=== PATIENT | male | born 1950 | race Caucasian/White ===

== ENCOUNTER 2017-10-05 13:08 | Emergency (ER) | payer MEDICARE, BC ==
[2017-10-05 13:31] VITALS: RESP 20; TEMP 98.7
--- NOTE | 2017-10-05 14:11 | ED ---
Extremity Problem HPI - General Chief complaint: Extremity Problem,Nontraumatic Stated complaint: poss DVT Time Seen by Provider: 10/05/17 13:32 Source: patient, RN notes reviewed Mode of arrival: wheelchair Limitations: no limitations - History of Present Illness Initial comments: This a 67-year-old male presents emergency Department with chief complaint of right leg pain. Patient states that he has a history of DVT. Patient concerned that he's had more pain when he presses on his calf than usual and is concerned that he may have recurrent DVT. He denies chest pain or shortness of breath. He has mild swelling to the right leg but states he normally has some swelling bilaterally. He does have severe psoriasis states this is normal for him. Patient denies any increased redness or warmth to his leg. - Related Data Home Medications Medication Instructions Recorded Confirmed Multivitamin [Men's Multi-Vitamin] 1 tab PO DAILY 02/15/14 07/18/15 [place]-3 Fatty Acids/Fish Oil [Fish 1,000 mg PO DAILY 02/15/14 07/18/15 Oil 1,000 mg Softgel] Ranitidine HCl [Zantac] 150 mg PO DAILY PRN 02/15/14 07/18/15 Albuterol Sulfate [Proair Hfa] 1 - 2 puff INHALATION Q6HR PRN 07/16/15 07/18/15 Ascorbic Acid [Vitamin C] 2,000 mg PO DAILY@1200 07/16/15 07/18/15 Betamethasone Dipropionate 1 applic TOPICAL BID 07/16/15 07/18/15 [Diprolene 0.05% Ointment] Calcipotriene 60 ml TP DAILY 07/16/15 07/18/15 Lansoprazole [Prevacid] 30 mg PO DAILY 07/16/15 07/18/15 PARoxetine HCL [Paxil] 60 mg PO HS 07/16/15 07/18/15 Primidone [Mysoline] 50 mg PO DAILY 07/16/15 07/18/15 Valsartan/Hydrochlorothiazide 1 tab PO BID 07/16/15 07/18/15 [Diovan Hct 160-25 mg Tablet] Vitamin E 1,000 unit PO DAILY 07/16/15 07/18/15 busPIRone HCl [Buspar] 10 mg PO TID 07/16/15 07/18/15 diphenhydrAMINE [Benadryl] 25 mg PO HS 07/16/15 07/18/15 Previous Rx's Medication Instructions Recorded Aspirin 325 mg PO DAILY 30 Days tab 02/20/14 Cholecalciferol [Vitamin D3] 1,000 unit PO DAILY@1200 30 Days 02/20/14 tab Gentamicin 0.1% Cream 1 applic TOPICAL DAILY 30 Days 02/20/14 applic Taclonex 1 applic TOPICAL BID #30 02/20/14 Allergies Allergy/AdvReac Type Severity Reaction Status Date / Time Sulfa (Sulfonamide Allergy Unknown Unknown Verified 10/05/17 13:31 Antibiotics) acetaminophen [From Vicodin] Allergy Chest Pain Verified 10/05/17 13:31 cephalexin monohydrate Allergy Anaphylaxis Verified 10/05/17 13:31 [From Keflex] codeine phosphate Allergy Chest Pain Verified 10/05/17 13:31 [From Tylenol-Codeine #3] hydrocodone bitartrate Allergy Chest Pain Verified 10/05/17 13:31 [From Vicodin] levofloxacin [From Levaquin] Allergy Rash/Hives Verified 10/05/17 13:31 Penicillins Allergy Anaphylaxis Verified 10/05/17 13:31 rosuvastatin calcium Allergy Chest Pain Verified 10/05/17 13:31 [From Crestor] Tetracyclines Allergy Anaphylaxis Verified 10/05/17 13:31 atorvastatin calcium AdvReac MUSCLE Verified 10/05/17 13:31 [From Lipitor] PAINS Review of Systems ROS Statement: Those systems with pertinent positive or pertinent negative responses have been documented in the HPI. ROS Other: All systems not noted in ROS Statement are negative. Past Medical History Past Medical History: Asthma, Diabetes Mellitus, Deep Vein Thrombosis (DVT), GERD/Reflux, Hearing Disorder / Deafness, Hyperlipidemia, Hypertension, Skin Disorder Additional Past Medical History / Comment(s): Diabetes controlled by diet, GOOD WHEN WGT DOWN. HX DVT RT GROIN TO ANKLE, WEARS THIGH HIGH TEDS. Hiatal Hernia, LGE/SLIDING. Has Psoriasis ON Body/SCALP. FLATULENCE. TINNITUS. HERNIATED DISCS LOWER BACK, GETS SCIATICA. History of Any Multi-Drug Resistant Organisms: None Reported Past Surgical History: Cholecystectomy, Heart Catheterization, Orthopedic Surgery Additional Past Surgical History / Comment(s): Lt ankle surgery. Left ACL RT KNEE, CADAVER GRAFT. Jaw Surgery. CATH 1993, [place]. Past Anesthesia/Blood Transfusion Reactions: No Reported Reaction Past Psychological History: Anxiety, Depression, PTSD Smoking Status: Former smoker Past Alcohol Use History: None Reported Past Drug Use History: None Reported - Past Family History Father Brother(s) Family Medical History: Cancer General Exam Limitations: no limitations General appearance: alert, in no apparent distress Head exam: Present: atraumatic, normocephalic, normal inspection Neck exam: Present: normal inspection. Absent: tenderness, meningismus, lymphadenopathy Respiratory exam: Present: normal lung sounds bilaterally. Absent: respiratory distress, wheezes, rales, rhonchi, stridor Cardiovascular Exam: Present: regular rate, normal rhythm, normal heart sounds. Absent: systolic murmur, diastolic murmur, rubs, gallop, clicks Extremities exam: Present: other (Right calf mild tenderness with palpation, pedal pulses equal bilaterally 2+, mild erythema with diffuse psoriasis changes. Minimal edema) Course Vital Signs 10/05/17 13:28 Temperature 98.7 F Pulse Rate 101 H Respiratory 20 Rate Blood Pressure 155/76 O2 Sat by Pulse 94 L Oximetry Medical Decision Making - Medical Decision Making 67-year-old male presented for right calf pain concern for DVT. Patient had old chart which showed no evidence of acute DVT. Patient may have pain for superficial thrombophlebitis and which she'll continue compression stockings, warm compresses. Patient will follow-up with PCP for further care return parameters were discussed. There is no evidence of cellulitis at this time. Patient has good arterial pulse. Disposition Clinical Impression: Right calf pain Disposition: HOME SELF-CARE Condition: Stable Instructions: Superficial Thrombophlebitis (ED) Additional Instructions: Please return to the Emergency Department if symptoms worsen or any other concerns. Is patient prescribed a controlled substance at d/c from ED?: No Referrals: Clifton Angeles MD [Primary Care Provider] - 1-2 days
--- NOTE | 2017-10-05 14:59 | US ---
EXAMINATION TYPE: US venous doppler duplex LE RT DATE OF EXAM: 10/05/2017 2:35 PM COMPARISON: NONE CLINICAL HISTORY: 67-year-old male Pain. ACL graft 8 years ago, per pt SIDE PERFORMED: Right TECHNIQUE: The lower extremity deep venous system is examined utilizing real time linear array sonog jennifer with graded compression, doppler sonography and color-flow sonography. FINDINGS: VESSELS IMAGED: External Iliac Vein (EIV) Common Femoral Vein Deep Femoral Vein Greater Saphenous Vein * Femoral Vein Popliteal Vein Small Saphenous Vein * Proximal Calf Veins (* superficial vessels) Independent Living Advisor notes: Suboptimal visualization overall secondary to large patient body habitus. Right Leg: Negative for DVT IMPRESSION: Technical limitations due to large body habitus. To the extent visualized, no evidence for DVT within the right lower extremity imaged from the groin to the upper calf.
[2017-10-05 15:39] VITALS: BP 144/70; PULSE 98
== END 2017-10-05 15:38 | disposition home or self-care (01) ==
LOC: EC 13:08
DX: M79.661 Pain in right lower leg (principal); E78.5 Hyperlipidemia, unspecified; I10 Essential (primary) hypertension; L40.9 Psoriasis, unspecified; F32.9 Major depressive disorder, single episode, unspecified; F41.9 Anxiety disorder, unspecified; Z86.718 Personal history of other venous thrombosis and embolism; Z95.5 Presence of coronary angioplasty implant and graft; Z88.0 Allergy status to penicillin; Z88.1 Allergy status to other antibiotic agents; Z88.2 Allergy status to sulfonamides; Z88.5 Allergy status to narcotic agent; Z88.8 Allergy status to other drugs, medicaments and biological substances; Z79.899 Other long term (current) drug therapy; Z87.891 Personal history of nicotine dependence
CPT/HCPCS: 99283